=== PATIENT | female | born 1975 | race Caucasian/White ===

== ENCOUNTER → 2016-08-11 | Outpatient (CLI) | payer BC ==
[~2016-08-11] MED LIST: FLNCV PO; MONT1TAB3 PO
--- NOTE | 2016-08-11 12:01 | DIAGNOSTIC IMAGING REPORT ---
Brain MRI WITHOUT CONTRAST HISTORY: DAILY HEADACHES, NEW ONSET HEADACHES TECHNIQUE: Multiplanar multisequence MRI of the brain was performed without the use of contrast. COMPARISON STUDY: None. FINDINGS: There are no areas of restricted diffusion to suggest acute infarction. The midline structures are intact. The paranasal sinuses are clear. The mastoid air cells are clear. The ventricles and sulci are within normal limits for age. There is no mass, hematoma, midline shift. The major vascular flow-voids at the skull base are well maintained. Incidental is made of a few prominent perivascular spaces within the white matter of the bilateral parietal lobes. These are considered to be normal variants. There are also a few scattered punctate foci of T2 hyperintensity seen within the periventricular white matter of the supratentorial brain. IMPRESSION: 1. No acute intracranial abnormality. 2. A few scattered punctate foci of T2 hyperintensity within the periventricular white matter of the supratentorial brain. These are nonspecific but can be seen in the setting of migraines or minimal microvascular ischemic change. A demyelinating process is considered less likely but not entirely excluded. Electronically signed by: Kodi Scherer M.D. 08/11/2016 11:59 AM Dictated Date/Time: 08/11/2016 11:52 AM
== END | disposition home or self-care (01) ==
LOC: C.OPENMRI 09:58
PROVIDERS: ATTEND Psychiatry & Neurology Neurology
DX: R51 Headache (principal)

== ENCOUNTER → 2016-08-13 | Outpatient (CLI) | payer BC ==
[2016-08-13 11:10] LABS: HEMATOCRIT 39.4 % (37-47); MEAN CELL VOLUME 84.9 fL (80-100); MEAN CORPUSCULAR HEMOGLOBIN 30.4 pg (25-34); MEAN CORPUSCULAR HGB CONC 35.8 g/dl (32-36); MEAN PLATELET VOLUME 8.9 fL (7.4-10.4); PLATELET COUNT 285 K/uL (130-400); RED BLOOD COUNT 4.64 M/uL (4.2-5.4); WHITE BLOOD COUNT 7.29 K/uL (4.8-10.8)
[2016-08-13 11:32] LABS: ESTIMATED AVERAGE GLUCOSE 114 mg/dl; HA1C FLAG Normal (Normal)
[2016-08-13 11:49] LABS: BLOOD UREA NITROGEN 12 mg/dl (7-18); BUN/CREATININE RATIO 11.2 (10-20); CALCIUM 8.9 mg/dl (8.5-10.1); CARBON DIOXIDE 26 mmol/L (21-32); CHLORIDE 106 mmol/L (98-107); GLUCOSE 88 mg/dl (70-99); POTASSIUM 4.1 mmol/L (3.5-5.1); SODIUM 140 mmol/L (136-145)
[2016-08-13 11:53] LABS: BASO % 0.1 %; BASO ABS # 0.01 K/uL (0-0.2); COMPLETE YES; EOS % 1.5 %; IG% 0.1 %; LYMPH % 25.1 %; LYMPH ABS # 1.83 K/uL (1.2-3.4); MONO % 7.1 %; NEUT % 66.1 %
[2016-08-13 14:09] LABS: LYME DISEASE AB IGG NEG (NEG); LYME DISEASE AB IGM NEG (NEG)
== END | disposition home or self-care (01) ==
LOC: C.LAB 09:39
PROVIDERS: ATTEND Psychiatry & Neurology Neurology
DX: R73.03 Prediabetes (principal); R42 Dizziness and giddiness; R41.89 Other symptoms and signs involving cognitive functions and awareness; R51 Headache

== ENCOUNTER → 2016-11-06 | Outpatient (CLI) | payer BC | END | disposition home or self-care (01) | LOC: C.PAPS 12:57 | PROVIDERS: ATTEND Physician Assistant | DX: Z01.419 Encounter for gynecological examination (general) (routine) without abnormal findings (principal) ==

== ENCOUNTER → 2016-11-06 | Outpatient (CLI) | payer BC | END | disposition home or self-care (01) | LOC: C.LABSPEC 12:24 | PROVIDERS: ATTEND Physician Assistant | DX: L29.8 Other pruritus (principal) ==

== ENCOUNTER → 2016-11-13 | Outpatient (CLI) | payer BC ==
--- NOTE | 2016-11-13 14:07 | MAMMOGRAPHY REPORT ---
UNILATERAL LEFT DIGITAL DIAGNOSTIC MAMMOGRAM TOMOSYNTHESIS WITH CAD AND TARGETED LEFT ULTRASOUND: CLINICAL HISTORY: The patient reports a area of tenderness and associated lump in the left breast fo r approximately 1-2 months. TECHNIQUE: Breast tomosynthesis in addition to standard 2D mammography was performed. Current study was also evaluated with a Computer Aided Detection (CAD) system. Left CC and MLO 2-D and tomosynth esis images were obtained. COMPARISON: Comparison is made to exams dated: 05/23/2016 mammogram, 05/14/2015 mammogram, and 2011 ultrasound - [facility]. BREAST COMPOSITION: There are scattered areas of fibroglandular density in the left breast. FINDINGS: A triangle marker jalloh the site of the palpable lump in the left lateral breast at appro ximately 3:00. There are no suspicious masses, calcifications, or areas of architectural distortion noted in the left breast mammographically. There has been no significant interval change compared to prior exams. Targeted ultrasound was performed of the area of pain and associated lump in the left breast pointed out by the patient, at approximately 4:00, 6 cm from the nipple. Sonographically normal tissue is seen in this region, without evidence of a mass or other suspicious sonographic abnormality. IMPRESSION: ACR BI-RADS CATEGORY 2: BENIGN, TARGETED ULTRASOUND ACR BI-RADS CATEGORY 2: BENIGN No suspicious mammographic or sonographic abnormality at the site of the tender left breast lump poi nted out by the patient. There is no mammographic or targeted sonographic evidence of malignancy. Recommend clinical follow-up; any decision to biopsy should be based on clinical grounds. Also albert mmend routine bilateral screening mammograms which are due May 2017. The patient has been verb ally notified of the results. Approximately 10% of breast cancers are not detected with mammography. A negative mammographic repor t should not delay biopsy if a clinically suggestive mass is present. Kathryn Simental M.D. /:11/13/2016 10:22:44 Data Systems Analyst: Faviola Burger, [facility] letter sent: Normal 1/2 BI-RADS Code: ACR BI-RADS Category 2: Benign Ultrasound BI-RADS: ACR BI-RADS Category 2: Benign
== END | disposition home or self-care (01) ==
LOC: C.MAMM 08:55
PROVIDERS: ATTEND Physician Assistant
DX: N63 Unspecified lump in breast (principal)